=== PATIENT | female | born 1970 | race Caucasian/White ===

== ENCOUNTER 2025-05-30 19:45 | Emergency (ER) | payer MEDICAID, OTHER ==
[2025-05-30] MEDS ORDERED: Ibuprofen 200 MG TAB ONE (20:14)
== END 2025-05-30 21:21 | disposition home or self-care (01) ==
LOC: CSHERS 19:45
DX: N63.20 Unspecified lump in the left breast, unspecified quadrant (principal); N61.0 Mastitis without abscess; J44.9 Chronic obstructive pulmonary disease, unspecified; F17.210 Nicotine dependence, cigarettes, uncomplicated; F17.290 Nicotine dependence, other tobacco product, uncomplicated